=== PATIENT | male | born 1965 | race Caucasian/White ===

== ENCOUNTER → 2017-06-29 10:17 | Outpatient (CLI) | payer MEDICARE ==
[2011-09-10 10:19] VITALS: BMI 17.4
[2017-06-30 09:15] LABS: IMMUNOGLOBULIN E 30 IU/mL (0-100)
[2017-06-30 12:14] LABS: IMMUNOGLOBULIN A 228 mg/dL (90-386); IMMUNOGLOBULIN G 1729 mg/dL (700-1600)
== END | disposition home or self-care (01) ==
LOC: D.RT 10:00
PROVIDERS: Internal Medicine Pulmonary Disease
DX: J44.9 Chronic obstructive pulmonary disease, unspecified (principal)